=== PATIENT | female | born 2000 | race Caucasian/White ===

== ENCOUNTER → 2020-01-17 17:14 | Outpatient (CLI) | payer MEDICAID, SELFPAY ==
[2020-01-17 18:07] LABS: Basophils % 0.4 % (0.1-2.0); Eosinophils # 0.1 K/mm3 (0.0-0.4); Eosinophils % 0.9 % (0.1-12.0); Hematocrit 43.9 % (37.0-47.0); Hemoglobin 14.8 g/dL (12.2-16.2); Lymphocytes # 3.6 K/mm3 (0.7-4.5); Mean Corpuscular HGB Conc 33.6 g/dL (31.8-35.4); Mean Corpuscular Hemoglobin 29.7 pg (27.0-31.2); Mean Corpuscular Volume 88.3 fl (81-99); Mean Platelet Volume 9.4 fl (7.4-10.4); Monocytes # 0.8 K/mm3 (0.1-1.0); Monocytes % 6.7 % (1.7-9.3); Platelet Count 424 K/mm3 (142-424); Red Blood Count 4.97 M/mm3 (4.20-5.40); Red Cell Distribution Width 13.7 % (11.5-17.5); White Blood Count 11.5 K/mm3 (4.8-10.8)
[2020-01-17 21:29] LABS: T4 (Thyroxine) 11.3 ug/dl (5.53-11.0)
[2020-01-17 21:43] LABS: Thyroid Stimulating Hormone 1.38 uIU/mL (0.465-4.68)
== END ==
PROVIDERS: Visit Provider Family Medicine
DX: E03.9 Hypothyroidism, unspecified (principal); E55.9 Vitamin D deficiency, unspecified
CPT/HCPCS: 82306; 84436; 84443; 85025

== ENCOUNTER → 2021-01-14 19:48 | Outpatient (CLI) | payer MEDICAID, SELFPAY ==
[2021-01-22 22:57] LABS: 1,25 Dihydroxy Vitamin D 71 pg/mL (.); 1,25-Dihydroxy, Vitamin D-2 62 pg/mL (.); 1,25-Dihydroxy, Vitamin D-3 <10 pg/mL (.)
== END ==
PROVIDERS: Visit Provider Family Medicine
DX: R61 Generalized hyperhidrosis (principal)
CPT/HCPCS: 82652

== ENCOUNTER → 2023-01-27 15:04 | Outpatient (CLI) | payer MEDICAID, SELFPAY ==
--- NOTE | 2023-01-27 15:13 | XR_ITS ---
FINAL REPORT CLINICAL HISTORY: Foot Pain FINDINGS: Left foot Three views were obtained. There is no acute fracture or dislocation. There are mild degenerative changes. There is a plantar calcaneal spur. Tibiotalar joint effusion is identified. IMPRESSION: Tibiotalar joint effusion. Reviewed, Interpreted and Dictated by Serjio Alvarado III, MD Transcribed by Mary Wolff Authenticated and [facility]
--- NOTE | 2023-01-27 15:13 | XR_ITS ---
FINAL REPORT CLINICAL HISTORY: Ankle Pain FINDINGS: Right ankle Three views were obtained. There is no acute fracture or dislocation. There are mild degenerative changes. There is a plantar calcaneal spur. No soft tissue abnormality is identified. IMPRESSION: No acute process. Reviewed, Interpreted and Dictated by Serjio Alvarado III, MD Transcribed by Mary Wolff Authenticated and [facility]
--- NOTE | 2023-01-27 15:13 | XR_ITS ---
FINAL REPORT CLINICAL HISTORY: left foot pain, comparison FINDINGS: Right foot Three views were obtained. There is no acute fracture or dislocation. There are mild degenerative changes. There is a plantar calcaneal spur. No soft tissue abnormality is identified. IMPRESSION: No acute process. Reviewed, Interpreted and Dictated by Serjio Alvarado III, MD Transcribed by Mary Wolff Authenticated and [facility]
--- NOTE | 2023-01-27 15:13 | XR_ITS ---
FINAL REPORT CLINICAL HISTORY: left Ankle Pain, comparison FINDINGS: Left ankle Three views were obtained. There is no acute fracture or dislocation. There are mild degenerative changes. There is a plantar calcaneal spur. No soft tissue abnormality is identified. IMPRESSION: No acute process. Reviewed, Interpreted and Dictated by Serjio Alvarado III, MD Transcribed by Mary Wolff Authenticated and [facility]
== END ==
LOC: RAD 15:05
PROVIDERS: PCP Family Medicine; Visit Provider Podiatrist
DX: M25.572 Pain in left ankle and joints of left foot (principal); M25.571 Pain in right ankle and joints of right foot; M79.672 Pain in left foot; M79.671 Pain in right foot
CPT/HCPCS: 73610; 73630

== ENCOUNTER → 2023-03-11 15:13 | Outpatient (CLI) | payer MEDICAID, SELFPAY ==
[2023-03-11 15:46] LABS: Basophils # 0.1 K/mm3 (0-0.2); Basophils % 0.4 % (0.1-2.0); Eosinophils # 0.1 K/mm3 (0.0-0.4); Eosinophils % 0.9 % (0.1-12.0); Hemoglobin 14.4 g/dL (12.2-16.2); Lymphocytes # 3.6 K/mm3 (0.7-4.5); Mean Corpuscular HGB Conc 31.9 g/dL (31.8-35.4); Mean Corpuscular Volume 84.5 fl (81-99); Mean Platelet Volume 7.4 fl (7.4-10.4); Monocytes # 0.8 K/mm3 (0.1-1.0); Monocytes % 5.8 % (1.7-9.3); Neutrophils # 9.3 K/mm3 (1.8-7.8); Neutrophils % 66.9 % (37.0-80.0); Platelet Count 387 K/mm3 (142-424); Red Blood Count 5.33 M/mm3 (4.20-5.40); Red Cell Distribution Width 14.5 % (11.5-17.5)
[2023-03-11 15:57] LABS: Hemoglobin A1C 5.8 % (4.0-6.0)
[2023-03-11 15:58] LABS: Alanine Aminotransferase 32 U/L (12-78); Albumin Level 4.4 g/dl (3.5-5.0); Albumin/Globulin Ratio 1.4 (1.1-1.8); Alkaline Phosphatase 91 U/L (38-126); Anion Gap 13.4 mEq/L (5-15); Aspartate Amino Transferase 26 U/L (14-36); Bilirubin,Total 0.4 mg/dl (0.2-1.3); Blood Urea Nitrogen 10 mg/dl (7-17); Calcium 9.2 mg/dl (8.4-10.2); Carbon Dioxide 24 mmol/L (22.0-30.0); Chloride 105 mmol/L (98-107); Estimated Glomerular Filt Rate 123 ml/min (>60); GFR (African American) 149 ML/MIN (>60); Globulin 3.1 g/dL (1.3-3.2); Glucose 106 mg/dl (74-100); Potassium 4.4 mmoL/L (3.5-5.1); Sodium 138 mmol/L (136-145); Total Protein,Serum 7.5 g/dl (6.3-8.2)
[2023-03-11 16:40] LABS: Erythrocyte Sedimentation Rate 23 mm/hr (0-20)
[2023-03-13 09:18] LABS: C-Reactive Protein 37.6 mg/L (0-4)
== END ==
LOC: LAB 15:13
PROVIDERS: PCP Family Medicine; Visit Provider Nurse Practitioner Family
DX: M79.671 Pain in right foot (principal); M79.672 Pain in left foot; M14.672 Charcot's joint, left ankle and foot
CPT/HCPCS: 36415; 80053; 83036; 85025; 85651; 86140

== ENCOUNTER 2024-07-14 14:06 | Outpatient (CLI) | payer OTHER, SELFPAY ==
[2024-07-15 10:31] LABS: Thyroid Stimulating Hormone 1.63 uIU/mL (0.465-4.68)
[2024-07-15 10:43] LABS: Hemoglobin A1C 5.2 % (4.0-6.0)
== END 2024-07-14 23:59 | disposition home or self-care (01) ==
LOC: LAB.DROPOF 07-18 14:06
PROVIDERS: PCP Family Medicine; Visit Provider Family Medicine
DX: R73.03 Prediabetes (principal)
CPT/HCPCS: 83036; 84443

== ENCOUNTER 2025-06-05 08:19 | Outpatient (CLI) | payer OTHER, SELFPAY ==
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
--- OUTSIDE RECORDS SUMMARY | 2025-05-09 15:00 | XMS_ITS | Encounter Summary ---
Author Organization [place] [address] Care Team Providers Care Sample Sawyer Name Role Phone Regis Marcelo MD Primary Care Provider [phone] Reason for Referral * Ultrasound (Routine) - Pending Review Specialty Diagnoses / Procedures Referred By Contac t Referred To Contact Radiology Diagnoses Pelvic pain Procedures US NON-OB TRANSVAGINAL Ryan Ballesteros MD [address] [facility] [address] [place] [address] Phone: tel: fax: Referral ID Status Reason Start Date Expiration Date V isits Requested Visits Authorized [id number] Pending Review 05/09/2025 05/09/2026 1 1 Reason for Visit * Reason Comments [employer] Rep Ultrasound Encounter Details Date Type Department Care Team (Latest Contact Info) Description 05/09/2025 3:00 PM EST Clinical Support [facility] [address] [facility] [address] [place] [phone] Cristal Cantu RDMS Pelvic pain (Primary Dx) Social History Tobacco Use Types Packs/Day Years Used Date Smoking Tobacco: Some Days Cigarettes Last attempted to quit: 10/20/2020 Smokeless Tobacco: Never Alcohol Use Standard Drinks/Week Comments Yes 0 (1 standard drink = 0.6 oz pur e alcohol) occasionally Sexually Active Control Partners Comments Yes Male Comments No Sex and Gender Information Value Date Recorded Sex Assigned at Not on file Legal Sex Female 9:04 PM EDT Gender Identity Not on file Sexual Orientation Not on file documented as of this encounter Progress Notes * Cristal Cantu RDMS - 05/09/2025 3:00 PM EST Ultrasound performed documented in this encounter Plan of Treatment Not on file documented as of this encounter Procedures Procedure Name Priority Date/Time Associated Diagnosis Comments US NON-OB TRANSVAGINAL Routine 05/09/2025 3:03 PM EST Pelvic pain documented in this encounter Results * US NON-OB TRANSVAGINAL (05/09/2025 3:03 PM EST) Anatomical Region Laterality Modality Other Narrative 05/16/2025 7:29 AM EST Nl pelvic u/s No clear source of pelvic pain us Ryan Ballesteros MD IM US ORDERABLES Final Result documented in this encounter Visit Diagnoses Diagnosis Pelvic pain- Primary Unspecified symptom associated with female genital organs documented in this encounter Care Teams Sample Sawyer Relationship Specialty Start Date End Date Regis Marcelo MD [address] [place] [address] PCP - General Family Medicine 12/18/24 documented as of this encounter
--- OUTSIDE RECORDS SUMMARY | 2025-06-02 10:22 | XMS_ITS | Encounter Summary ---
Author Organization [place] [address] Care Team Providers Care Ethylene Plant Helper Name Role Phone Regis Marcelo MD Primary Care Provider [phone] Reason for Referral * Ultrasound (Routine) - Pending Review Specialty Diagnoses / Procedures Referred By Contac t Referred To Contact Radiology Diagnoses Gall stones Procedures US RIGHT UPPER QUADRANT Provider, Not In [facility] Referral ID Status Reason Start Date Expiration Date V isits Requested Visits Authorized [id number] Pending Review 06/01/2025 06/01/2026 1 1 Reason for Visit * Ultrasound (Routine) - Pending Review Specialty Diagnoses / Procedures Referred By Contac t Referred To Contact Radiology Diagnoses Gall stones Procedures US RIGHT UPPER QUADRANT Provider, Not In Epic Referral ID Status Reason Start Date Expiration Date V isits Requested Visits Authorized [id number] Pending Review 06/01/2025 06/01/2026 1 1 Encounter Details Date Type Department Care Team (Latest Contact Info) Description 06/02/2025 10:22 AM EST - 06/02/2025 11:59 PM EST Hospital Encounter [facility] [facility] [address] [place] [id number] Provider, Not In [facility] Gall stones Discharge Disposition: Home or Self Care Social History Tobacco Use Types Packs/Day Years [...] on file documented as of this encounter Medications at Time of Discharge cloNIDine HCL (CATAPRES) 0.2 mg Oral Tablet Take by mouth. escitalopram oxalate (LEXAPRO) 10 mg Oral Tablet Take 1 Tablet by mouth daily. 30 Tablet 02/05/2021 ISIBLOOM 0.15-0.03 mg Oral Tablet 10/26/2020 miSOPROStoL (CYTOTEC) 200 mcg Oral Tablet Take 3 Tablets by mouth 3 times daily. Take 2 tabs by mouth the night before procedure and 2 tabs the morning of procedure. 9 Tablet 12/19/2024 nalOXone (NARCAN) 4 mg/actuation Nasl [place], Non-Aerosol 0.1 mL by INTRANASAL route as needed for Opioid Reversal. 2 Each 07/08/2021 oxyCODONE (ROXICODONE) 5 mg Oral Tablet Take 1 Tablet by mouth every 4 hours as needed for Acute Pain (R52). 10 Tablet 12/19/2024 vit no.[id number] c 27 mg iron- 800 mcg Oral Tablet Take 1 Tablet by mouth daily. documented as of this encounter Discharge Disposition Disposition Code Departure Means Destination Home or Self Care documented in this encounter Plan of Treatment Not on file documented as of this encounter Procedures Procedure Name Priority Date/Time Associated Diagnosis Comments US RIGHT UPPER QUADRANT Routine 06/02/2025 10:44 AM EST Gall stones documented in this encounter Results * US RIGHT UPPER QUADRANT (06/02/2025 10:44 AM EST) Anatomical Region Laterality Modality Abdomen Ultrasound 06/02/2025 10:4 4 AM EST Impressions 06/02/2025 10:59 AM EST 1. 2.1 cm hypoechoic lesion right hepatic lobe. This does not represent a simple cyst. Recommend further evaluation with multiphasic CT or MRI. 2. Otherwise unremarkable examination. - Note: Radiology results need to be interpreted within a comprehensive clinical context. If you have questions about the radiology report, please contact the office of the ordering clinician. Narrative 06/02/2025 10:59 AM EST US RIGHT UPPER QUADRANT, 06/02/2025 10:44 AM CLINICAL HISTORY: K80.20-Calculus of gallbladder without cholecystitis without [id number]. COMPARISON: None. PROCEDURE COMMENTS: Ultrasound examination of the right upper quadrant performed by the technologist. Sent to PACS along with tech notes for radiologist review. FINDINGS: Gallbladder: Normal. Galindo's sign: Negative. Liver: Liver is normal in size. There is a well-circumscribed 2.1 x 1.8 cm hypoechoic lesion in the right hepatic lobe. There is some increased through transmission but this does not represent a simple cyst. Common bile duct: Measures 2.0 mm. (Normal is 6mm or less. If there has been cholecystectomy, normal is 10mm or less.) Pancreas: Visualized portions are normal. Other: Right kidney non-hydronephrotic. Procedure Note rBayden Ward MD - 06/02/2025 US RIGHT UPPER QUADRANT, 06/02/2025 10:44 AM CLINICAL HISTORY: K80.20-Calculus of gallbladder without cholecystitiswithout [id number]-CM. COMPARISON: None. PROCEDURE COMMENTS: Ultrasound examination of the right upper quadrantperformed by the technologist. Sent to PACS along with tech notes for radiologistreview. FINDINGS: Gallbladder: Normal. Galindo's sign: Negative. Liver: Liver is normal in size. There is a well-circumscribed 2.1 x 1.8cm hypoechoic lesion in the right hepatic lobe. There is some increasedthrough transmission but this does not represent a simple cyst. Common bile duct: Measures 2.0 mm. (Normal is 6mm or less. If there hasbeen cholecystectomy, normal is 10mm or less.) Pancreas: Visualized portions are normal. Other: Right kidney non-hydronephrotic. IMPRESSION: 1. 2.1 cm hypoechoic lesion right hepatic lobe. This does not representa simple cyst. Recommend further evaluation with multiphasic CT or MRI. 2. Otherwise unremarkable examination. - Note: Radiology results need to be interpreted within a comprehensiveclinical context. If you have questions about the radiology report, please contactthe office of the ordering clinician. us Not In [facility] Provider IMG US ORDERABLES Final Res ult documented in this encounter Visit Diagnoses Diagnosis Gall stones Calculus of gallbladder without mention of cholecystitis or obstruction documented in this encounter Care Teams Ethylene Plant Helper Relationship Specialty Start Date End Date Regis Marcelo MD [address] [place] [address] PCP - General Family Medicine 12/18/24 documented as of this encounter
[2025-06-05 21:45] LABS: Alanine Aminotransferase 54 U/L (12-78); Albumin Level 4.6 g/dl (3.5-5.0); Albumin/Globulin Ratio 1.5 (1.1-1.8); Alkaline Phosphatase 72 U/L (38-126); Anion Gap 13.5 mEq/L (5-15); Aspartate Amino Transferase 37 U/L (14-36); Bilirubin,Total 0.5 mg/dl (0.2-1.3); Blood Urea Nitrogen 13 mg/dl (7-17); Calcium 9.5 mg/dl (8.4-10.2); Carbon Dioxide 24 mmol/L (22.0-30.0); Chloride 103 mmol/L (98-107); Cholesterol 137 mg/dl (140-200); Creatinine,Serum 0.70 mg/dl (0.52-1.04); Estimated Glomerular Filt Rate 101 ml/min (>60); GFR (African American) 122 ML/MIN (>60); Globulin 3.1 g/dL (1.3-3.2); Glucose 92 mg/dl (74-100); HDL Cholesterol 41 mg/dl (40-60); Potassium 4.5 mmoL/L (3.5-5.1); Sodium 136 mmol/L (136-145); Total Protein,Serum 7.7 g/dl (6.3-8.2); Triglycerides 62 mg/dl (30-150)
[2025-06-05 22:15] LABS: Thyroid Stimulating Hormone 0.77 uIU/mL (0.465-4.68)
[2025-06-05 22:57] LABS: Hemoglobin A1C 5.3 % (4.0-6.0)
[2025-06-06 03:50] LABS: Hepatitis C Ab Qual. W/ RFX NEGATIVE (Negative)
[2025-06-07 03:41] LABS: Hepatitis B Surface Antigen Negative (Negative)
--- OUTSIDE RECORDS SUMMARY | 2025-06-07 08:22 | XMS_ITS | Patient Health Record ---
Author Organization [facility] Address [address] [place] [address] Care Team Providers Care Cut Off Sawyer [place] Name Role Phone Migration, Provider Unavailable Unavailable Allergies Allergen (clinical drug ingredient) Drug/Non Drug Allergy documented on EMR Reaction Allergy Type Onset Date Status Substance with penicillin structure and antibacterial mechanism of action (substance) Medications: PENICILLINS (uncoded) Unspecified Allergy Active Reason For Referral No Information Medications Medication SIG (Take, Route, Frequency, Duration) [...] [place]: Travel History: Uses seat belts Plan Of Treatment No Information Medical (General) History Medical History History ICD Code 7 Olin: Self breast exam - No 7 Olin: Sexually active - Yes 7 Olin: Greater than 5 lifetime sexual partners 7 Olin: Dairy Product Use - Yes 7 Olin: Heterosexual Adopted High blood pressure Depression Asthma IBS (irritable colon syndrome) Anxiety ADHD (attention deficit hyperactivity di sorder) evaluation Surgical History Surgery Date(Month/Year) [place] teeth surgery
--- OUTSIDE RECORDS SUMMARY | 2025-06-07 08:22 | XMS_ITS | Encounter Summary ---
Author Organization [place] [address] Care Team Providers Care Job Lithographer Name Role Phone Regis Marcelo MD Primary Care Provider [phone] Encounter Details Date Type Department Care Team (Late st Contact Info) Description 04/10/2025 Results Follow-Up [facility] [address] [facility] [address] [place] [phone] Ryan Ballesteros MD [address] [place] [address] [place] [address] [phone] VAGINITIS PANEL NAAT, MYCOPLASMA GENITALIUM, NAAT, CHLAMYDIA/GC BY TMA Social History Tobacco Use Types Packs/Day Years [...] on file documented as of this encounter Plan of Treatment Not on file documented as of this encounter Visit Diagnoses Not on filedocumented in this encounter Care Teams Job Lithographer Relationship Specialty Start Date End Date Regis Marcelo MD [address] [place] [address] PCP - General Family Medicine 12/18/24 documented as of this encounter
--- OUTSIDE RECORDS SUMMARY | 2025-06-07 08:22 | XMS_ITS | Clinical Summary ---
Author Organization [facility] Address [address] [place] [address] Care Team Providers Care Steel Spar Operator Name Role Phone Regis Marcelo MD Primary Care Provider [phone] Allergies Active Allergy Reactions Criticality Noted Date Comments Amoxicillin 10/28/2021 Penicillins Rash Low 06/19/2018 Rash Poison Justina Extract Rash 10/28/2021 Medications cloNIDine HCL (CATAPRESS) 0.2 mg tabletIndicatio ns:sleep Take 0.2 mg by mouth nightly at bedtime. Indications: sleep Active escitalopram oxalate (LEXAPRO) 10 mg Tablet Take 20 mg by mouth nightly at bedtime. Active desogestreL-eth inyl estradioL (APRI) 0.15-0.03 mg Tablet Take 1 Tablet by mouth nightly at bedtime. Active Aspirin-Acetami nophen-Caffeine (Excedrin Migraine) 250-250-65 mg Tablet Take 1 Tablet by mouth every 6 hours as needed. Active Active Problems No known active problems Social History Tobacco Use Types Packs/Day Years Used Date Smoking Tobacco: Former Cigarettes 0 2 024 - 2014 Smokeless Tobacco: Never Tobacco Cessation:Counseling Given: Not Answered Comments:occas Alcohol Use Standard Drinks/Week Comments Never 0 (1 standard drink = 0.6 oz pur e alcohol) Comments No Sex and Gender Information Value Date Recorded Sex Assigned at Not on file Legal Sex Female 3:51 PM EDT Gender Identity Not on file Sexual Orientation Not on file Last Filed Vital Signs Vital Sign Reading Time Taken Comments Blood Pressure 120/79 11/17/2024 11:00 AM EDT ri ght arm Pulse 90 11/17/2024 11:00 AM EDT Temperature 36.4 C (97.5 F) 11/17/2024 11:00 AM EDT Respiratory Rate 17 11/17/2024 11:00 AM EDT Oxygen Saturation 97% 11/17/2024 11:00 AM EDT Inhaled Oxygen Concentration - - Weight 94.8 kg (209 lb) 11/17/2024 11:00 AM EDT Height 160 cm (5' 3 ) 11/17/2024 11:00 AM EDT Body Mass Index 37.02 11/17/2024 11:00 AM EDT Plan of Treatment Health Maintenance Due Date Last Done Comments HPV Vaccine (1 - 3-dose series) 2013 Lipid Screening 2018 Cervical Cancer Screening 11/14/2019 BMI Counseling 06/22/2024 Depression Screening 06/22/2024 COVID-19 Vaccine ( season) 02/20/202510/2020, 10/03/2020 Influenza Vaccination (#1) 2025 Tetanus Vaccination (Every 10 Years) 08/25/2031 03/0 10/2021 Insurance Care Teams Steel Spar Operator Relationship Specialty Start Date End Date Regis Marcelo MD [address] [place] [address] PCP - General Family Medicine 10/28/21
--- OUTSIDE RECORDS SUMMARY | 2025-06-07 08:24 | XMS_ITS | Clinical Summary ---
Author Organization [facility] Address [address] [facility] [address] Phone Care Team Providers Care Wharf Worker Name Role Phone Regis Marcelo MD Primary Care Provider [phone] Allergies Active Allergy Reactions Criticality Noted Date Comments Amoxicillin Rash 06/19/2018 Penicillins Rash 12/20/2022 Poison Justina Extract Rash 10/28/2021 Medications * This document contains information received from the source organization and may not represent a complete record from that organization. cloNIDine HCL (CATAPRES) 0.2 mg Oral Tablet Take by mouth. Active ISIBLOOM 0.15-0.03 mg Oral Tablet 1 Active escitalopram oxalate (LEXAPRO) 10 mg Oral Tablet Take 1 Tablet by mouth daily. 30 Tablet 1 Active nalOXone (NARCAN) 4 mg/actuation Nasl [place], Non-Aerosol 0.1 mL by INTRANASAL route as needed for Opioid Reversal. 2 Each 2 Active Additional Information Patient not taking.Reported on 01/19/2025 vit no.[id number] ic 27 mg iron- 800 mcg Oral Tablet Take 1 Tablet by mouth daily. Active miSOPROStoL (CYTOTEC) 200 mcg Oral Tablet Take 3 Tablets by mouth 3 times daily. Take 2 tabs by mouth the night before procedure and 2 tabs the morning of procedure. 9 Tablet 5 Active Additional Information Patient not taking.Reported on 01/19/2025 oxyCODONE (ROXICODONE) 5 mg Oral Tablet Take 1 Tablet by mouth every 4 hours as needed for Acute Pain (R52). 10 Tablet 5 Active Additional Information Patient not taking.Reported on 01/19/2025 Active Problems Problem Noted Date Diagnosed Date Missed 01/03/2025 History of abnormal cervical Pap smear 4 Overview (03/29/2024): LGSIL, HPV+ in 2021 Assessment & Plan (03/29/2024 1:39 PM EDT): Repeat pap today Dysmenorrhea treated with oral contraceptive 01/2024 Overview (03/29/2024): Continue OCPs Assessment & Plan (03/29/2024 1:39 PM EDT): Continue OCPs Encounters Date Type Department Care Team Description 06/02/2025 10:22 AM EST - 06/02/2025 11:[address] [facility] Hospital Encounter [facility] [address] [address] Provider, Not In Epic Gall stones Discharge Disposition: Home or Self Care 05/09/2025 3:00 PM EST Clinical Support [address] [place] [phone] Cristal Cantu RDMS Pelvic pain (Primary Dx) 04/10/2025 Results Follow-Up [address] [place] [phone] Ryan Ballesteros MD VAGINITIS PANEL NAAT, MYCOPLASMA GENITALIUM, NAAT, CHLAMYDIA/GC BY TMA 04/06/2025 10:00 AM EDT Office Visit [address] [place] [phone] Ryan Ballesteros MD Pelvic pain (Primary Dx); Dyspareunia in female; Vaginal discharge; Screening for STDs (sexually transmitted diseases) from Last 3 Months Immunizations Immunization Administration Dates Next Due Tdap 08/24/2021 Surgical History Surgery Date Site/Laterality Comments TONSILLECTOMY WISDOM TOOTH EXTRACTION Medical History Medical History Date Comments Scoliosis Depression Vitamin D deficiency Adhd Anxiety Social History Tobacco Use Types Packs/Day Years Used Date Smoking Tobacco: Some Days Cigarettes Last attempted to quit: 10/20/2020 Smokeless Tobacco: Never Tobacco Cessation:Ready to Q uit: Not Asked; Counseling Given: No Alcohol Use Standard Drinks/Week Comments Yes 0 (1 standard drink = 0.6 oz pur e alcohol) occasionally Sexually Active Control Partners Comments Yes Male Comments No Sex and Gender Information Value Date Recorded Sex Assigned at Not on file Legal Sex Female 9:04 PM EDT Gender Identity Not on file Sexual Orientation Not on file Obstetrics History Para Term AB IAB SAB Ectopic Multiple Livin g Live Births 1 0 0 0 0 0 0 0 0 0 0 Date Outcome GA Total Labor Labor/2nd/3rd Weight Sex Type Anes PTL Kellen A1 A5 Name Clin Last Filed Vital Signs Vital Sign Reading Time Taken Comments Blood Pressure 118/80 04/06/2025 10:06 AM EDT Pulse 86 12/18/2024 4:02 AM EDT Temperature 36.7 C (98.1 F) 12/18/2024 4:02 AM EDT Respiratory Rate 18 12/18/2024 4:02 AM EDT Oxygen Saturation 100% 12/18/2024 4:02 AM EDT Inhaled Oxygen Concentration - - Weight 93.9 kg (207 lb) 04/06/2025 10:06 AM EDT Height 160 cm (5' 3 ) 04/06/2025 10:06 AM EDT Body Mass Index 36.67 04/06/2025 10:06 AM EDT Plan of Treatment Health Maintenance Due Date Last Done Comments Annual Wellness Exam 2001 HPV (1 - 3-dose series) 2013 Hepatitis B Vaccine (1 of 3 - 19+ 3-dose series) 2017 Pneumococcal Vaccine 0-49 (1 of 2 - PCV) 2017 COVID-19 Vaccine ( - 2024- season) 2025 10/24/2020, 10/03/2020 Influenza Vaccine (#1) 2025 Cervical Cancer Screening 03/29/2027 Pap Smear 03/29/2027 03/29/2024, 0506/2021, 11/19/2021, Additional history exists DTaP/TDaP/Td (2 - Td or Tdap) 08/25/2031 08/24/2021 Meningococcal B Vaccine Aged Out No l onger eligible based on patient's age to complete this topic Procedures Procedure Name Priority Date/Time Associated Diagnosis Comments US RIGHT UPPER QUADRANT Routine 06/02/2025 10:44 AM EST Gall stones US NON-OB TRANSVAGINAL Routine 05/09/2025 3:03 PM EST Pelvic pain CHLAMYDIA/GC BY TMA Routine 04/06/2025 1 0:28 AM EDT Dyspareunia in female Vaginal discharge Screening for STDs (sexually transmitted diseases) CHLAMYDIA/GC Routine 04/06/2025 10:28 AM EDT Dyspareunia in female Vaginal discharge Screening for STDs (sexually transmitted diseases) MYCOPLASMA GENITALIUM, NAAT Routine 04/06/2025 10:28 AM EDT Dyspareunia in female Vaginal discharge Screening for STDs (sexually transmitted diseases) VAGINITIS PANEL NAAT Routine 04/06/2025 10:28 AM EDT Dyspareunia in female Vaginal discharge OPERATIONS ACCOUNTANT CYTOLOGY REQUEST (PAP ONLY) Routine 03/29/2024 1:37 PM EDT Well woman exam with routine gynecological exam LGSIL on Pap smear of cervix Screen for STD (sexually transmitted disease) from Last 3 Months or Most Recently Relevant to Health Maintenance Results * US RIGHT UPPER QUADRANT (06/02/2025 [...] HISTORY: K80.20-Calculus of gallbladder without cholecystitis without [id number]. COMPARISON: None. PROCEDURE COMMENTS: Ultrasound examination of [...] normal. Other: Right kidney non-hydronephrotic. Procedure Note Brayden Ward MD - 06/02/2025 US RIGHT UPPER QUADRANT, 06/02/2025 10:44 AM CLINICAL HISTORY: K80.20-Calculus of gallbladder without cholecystitiswithout [id number]. COMPARISON: None. PROCEDURE COMMENTS: Ultrasound examination of [...] of the ordering clinician. us Not In [facility] Provider IMG US ORDERABLES Final Res ult * US NON-OB TRANSVAGINAL (05/09/2025 3:03 PM EST) Anatomical Region Laterality Modality Other Narrative 05/16/2025 7:29 AM EST Nl pelvic u/s No clear source of pelvic pain Ryan Ballesteros MD IMG US ORDERABLES Final Result * VAGINITIS PANEL NAAT (04/06/2025 10:28 AM EDT) Bacterial Vaginosis NAAT Not Detected Not Detected 04/07/2025 7:53 AM EDT [facility] Nakaseomyces (Alysha) glabrata NAAT Not Detected Not Detected 04/07/2025 7:53 AM EDT [facility] Alysha Species NAAT Not Detected Not Detected 04/07/2025 7:53 AM EDT [facility] Trichomonas vaginalis NAAT Not Detected Not Detected 04/07/2025 7:53 AM EDT [facility] Swab VAGINAL STRUCTURE / Unknown 04/06/2025 10:28 AM EDT 04/06/2025 10:28 AM EDT Ryan Ballesteros MD MICROBIOLOGY - GENERAL ORDERAB LES Final Result [facility] [address] [place] [address] , [place] [address] * MYCOPLASMA GENITALIUM, NAAT (04/06/2025 10:28 AM EDT) Pathologist [facility] M. genitalium NAAT Not Detected Not Detected 04/07/2025 9:05 AM EDT [facility] Swab VAGINAL STRUCTURE / Unknown 04/06/2025 10:28 AM EDT 04/06/2025 10:28 AM EDT Narrative [facility] - 04/07/2025 9:05 AM EDT A negative result does not completely rule out a Mycoplasma genitalium infection due to potential inhibitors or levels present below the limit of detection by this assay. Results are dependent on proper collection and transport of specimen. This test is indicated for medical purposes only and should not be used for legal or forensic purposes. The performance characteristics of this assay were verified by the testing laboratory. This assay is FDA cleared to test the following specimens: clinician-collected and self-collected vaginal swabs (in a clinical setting), clinician-collected endocervical swabs, female and male urine, clinician- collected male urethral swabs, and self-collected penile meatal swabs (in a clinical setting). Detailed methodology is available upon request. Ryan Ballesteros MD MICROBIOLOGY - GENERAL ORDERAB LES Final Result [facility] [address] [facility], [place] [address] * CHLAMYDIA/GC BY TMA (04/06/2025 10:28 AM EDT) Chlamydia trachomatis Not Detected Not Detected 04/07/2025 6:21 AM EDT [facility] Neisseria gonorrhoeae Not Detected Not Detected 04/07/2025 6:[address] [facility] VAGINAL STRUCTURE / Unknown 04/06/2025 10:28 AM EDT 04/06/2025 10:[address]T Narr[address] [facility] - 04/07/2025 6:21 AM EDT Testing methodology is supervisor ride assembly mediated amplification (TMA) using the Aptima Combo 2 assay from backstitch[employer]. A negative result does not completely rule out a Chlamydia trachomatis or Neisseria gonorrhoeae infection due to potential inhibitors or levels present below the limit of detection by this assay. Results are dependent on proper collection and transport of specimen. This test is indicated for medical purposes only and should not be used for legal or forensic purposes. The performance characteristics of this assay were validated by the testing laboratory. This assay is FDA cleared to test the following specimens: clinician-collected endocervical, vaginal, male urethral swab specimens, rectal swabs, and throat/pharyngeal swabs; patient collected vaginal specimens within a clinic setting; Thin Prep Specimens in PreservCyt Solution; and first-stream, unpreserved male and female urine specimens. Detailed methodology is available upon request. Ryan Ballesteros MD MICROBIOLOGY - GENERAL ORDERAB LES Final Result [facility] [address] [place] [address] * OPERATIONS ACCOUNTANT CYTOLOGY REQUEST (PAP ONLY) (03/29/2024 1:37 PM EDT) CASE REPORT Gynecologic Cytology Report Case: [id number] Authorizing Provider: Latisha Russ DO Collected: 03/29/20247 Ordering Location: [facility] Edg Received: 03/29/20247 First Screen: Iftikhar Medina CT Rescreen: Nika Del Castillo CT Specimen: LIQUID-BASED PAP - CERVICAL/ENDOCERV ICAL, Cervix, Endocervical 04/05/2024 10:30 AM EDT [facility] PAP FINAL DIAGNOSIS Negative for intraepithelial lesion or malignancy 04/05/2024 10:30 AM EDT [facility] at 1030 EDT MICROSCOPIC DESCRIPTION Microscopic examination is performed and the findings corroborate the diagnosis. 04/05/2024 10:30 AM EDT [facility] PAP SMEAR ADEQUACY Satisfactory for evaluation 04/05/2024 10:30 AM EDT [facility] ENDOCERVICAL T-ZONE Transformation zone present 04/05/2024 10:30 AM EDT [facility] EMBEDDED IMAGES 10:30 AM EDT [facility] PAP DISCLAIMER The Pap Smear is a screening test that aids in the detection of cervical cancer and cancer precursors. Both false positive and false negative results can occur. The test should be used at regular intervals, and positive results should be confirmed before definitive therapy. Processed using the ThinPrep Cardiac Exercise Specialist Automated cytology screening device ([employer]). 04/05/2024 10:30 AM EDT [facility] Thin Prep ENDOCERVICAL STRUCTURE / Unknown 03/29/2024 1:37 PM EDT 03/29/2024 1:37 PM EDT us Latisha Russ DO CYTOLOGY ORDERABLES [place] [address] from Last 3 Months or Most Recently Relevant to Health Maintenance Insurance Care Teams Wharf Worker Relationship Specialty Start Date End Date Regis Marcelo MD [address] [place] [address] PCP - General Family Medicine 12/18/24
== END 2025-06-05 23:59 | disposition home or self-care (01) ==
LOC: LAB.DROPOF 06-07 08:20
PROVIDERS: PCP Family Medicine; Visit Provider Family Medicine
DX: R16.0 Hepatomegaly, not elsewhere classified (principal); R63.5 Abnormal weight gain; Z11.59 Encounter for screening for other viral diseases; Z79.899 Other long term (current) drug therapy
CPT/HCPCS: 80053; 80061; 82105; 83036; 84443; 86803; 87340; 87389